=== PATIENT | male | born 1990 | race Caucasian/White ===

== ENCOUNTER 2018-05-01 00:28 | Emergency (ER) | payer OTHER ==
--- NOTE | 2018-05-01 01:58 | RADIOLOGY REPORT (SQ) ---
EXAM DESCRIPTION: XR CHEST 1 VIEW COMPLETED DATE/TME: 05/01/2018 01:21 CLINICAL HISTORY: 27 years Male, cp, sob COMPARISON: None. NUMBER OF VIEWS/TECHNIQUE: 1/AP FINDINGS: Adequate lung volume, clear parenchyma, normal cardiac silhouette, and intact bony thorax. IMPRESSION: No acute cardiopulmonary findings.
--- NOTE | 2018-05-01 02:30 | ER Document Report ---
ED General - General Chief Complaint: Chest Pain Stated Complaint: SHORTNESS OF BREATH Time Seen by Provider: 05/01/18 01:21 Notes: Patient is a 27-year-old male without chronic medical problems who presents with an episode of stabbing left-sided chest pain with associated shortness of breath that started while having sexual intercourse and has now spontaneously resolved. Patient states that this has happened on 2 previous occasions one several months ago while traveling for an extended period of time by a motor vehicle and second occasion approximately 2 weeks ago while running. States that he had an extensive evaluation at [facility] after the second episode. CTA of the chest, troponin markers, all unremarkable. Patient states that he had not had a recurrence of symptoms until tonight. States that it was a brief episode of stabbing, severe pain that made it difficult to breathe. Pain was exclusively isolated to the left mid chest. Pain did resolve spontaneously. No obvious trigger for the pain. Denies any history of DVT or pulmonary embolus. No unilateral leg swelling. No history of malignancy. No use of estrogen. No recent extended period of travel. No known trauma to the chest wall. Patient does note that he chronically has pain in his left neck and periscapular region. Past Medical History - General Information source: Patient - Social History Smoking Status: Never Smoker Chew tobacco use (# tins/day): Yes Frequency of alcohol use: None Drug Abuse: None Lives with: Spouse/Significant other Family History: Reviewed & Not Pertinent Patient has suicidal ideation: No Patient has homicidal ideation: No Renal/ Medical History: Denies: Hx Peritoneal Dialysis Review of Systems - Review of Systems Notes: Constitutional: Negative for fever. HENT: Negative for sore throat. Eyes: Negative for visual changes. Cardiovascular: Positive for chest pain. Respiratory: Positive for shortness of breath. Gastrointestinal: Negative for abdominal pain, vomiting or diarrhea. Genitourinary: Negative for dysuria. Musculoskeletal: Negative for back pain. Skin: Negative for rash. Neurological: Negative for headaches, weakness or numbness. 10 point ROS negative except as marked above and in HPI. Physical Exam - Vital signs Vitals: Temp Pulse Resp BP Pulse Ox 98.6 F 91 17 126/75 H 97 05/01/18 00:49 05/01/18 00:49 05/01/18 00:49 05/01/18 00:49 05/01/18 00:49 Interpretation: Normal Notes: PHYSICAL EXAMINATION: GENERAL: Well-appearing, well-nourished and in no acute distress. HEAD: Atraumatic, normocephalic. EYES: Pupils equal round and reactive to light, extraocular movements intact, sclera anicteric, conjunctiva are normal. ENT: nares patent, oropharynx clear without exudates. Moist mucous membranes. NECK: Normal range of motion, supple without lymphadenopathy LUNGS: Breath sounds clear to auscultation bilaterally and equal. No wheezes rales or rhonchi. HEART: Regular rate and rhythm without murmurs ABDOMEN: Soft, nontender, normoactive bowel sounds. No guarding, no rebound. No masses appreciated. EXTREMITIES: Normal range of motion, no pitting or edema. No cyanosis. NEUROLOGICAL: No focal neurological deficits. Moves all extremities spontaneously and on command. PSYCH: Normal mood, normal affect. SKIN: Warm, Dry, normal turgor, no rashes or lesions noted. Course - Re-evaluation Re-evalutation: 05/01/18 02:27 Presentation of chest pain in an otherwise well appearing patient. Low clinical suspicion for ACS given clinical history, exam, EKG without ST elevations or depressions, and negative initial troponin. HEART score less than or equal to 3. PE also seems unlikely given clinical history, absence of tachycardia or dyspnea. Patient is PERC criteria negative. CXR without evidence of pneumothorax or pneumonia. No widened mediastinum. Aortic dissection also seems unlikely g iven history, symmetric pulses, CXR, and vitals. Patient has been intermittently having stabbing pains over his left chest over the last several weeks. He did have a CT of the chest last week for similar symptoms and this was apparently negative. Of note, patient's stabbing chest pain has occurred usually during exertion, tonight was during sexual intercourse, several weeks ago was during a run. Considerations include muscular skeletal origin versus possible C6 VII nerve root impingement as patient does report some chronic left- sided neck pain and parascapular pain which could also cause stabbing pain over the chest wall. At this time will discharge with return precautions and follow- up recommendations. Verbal discharge instructions given a the bedside and opportunity for questions given. Medication warnings reviewed. Patient is in agreement with this plan and has verbalized understanding of return precautions and the need for primary care follow-up in the next 24-72 hours. - Vital Signs Vital signs: Temp Pulse Resp BP Pulse Ox 98.6 F 91 17 126/75 H 97 05/01/18 00:49 05/01/18 00:49 05/01/18 00:49 05/01/18 00:49 05/01/18 00:49 - Diagnostic Test Radiology reviewed: Image reviewed, Reports reviewed Radiology results interpreted by me: 05/01/18 02:28 Chest x-ray: No acute infiltrate pneumothorax - EKG Interpretation by Me Additional EKG results interpreted by me: 05/01/18 02:28 Sinus rhythm, rate 75. No ST elevations or depressions. QTC is 429. Discharge - Discharge Clinical Impression: Intermittent chest pain Condition: Good Disposition: HOME, SELF-CARE Additional Instructions: You were seen today for chest pain. The exact cause of your pain is unclear. Based on your cardiac enzyme testing, chest x-ray, and EKG it does not appear that it is from an immediately life-threatening cause at this time. As we discussed, a cervical nerve root impingement or inflammation of your chest wall could alternatively cause her symptoms. Although your testing here is normal is critical that you follow-up with your primary care physician for continued evalu ation of this chest pain and possible stress testing. I recommended you see your physician within the next 24-48 hours to be evaluated for consideration of a stress test. Please return to emergency department immediately if you have worsening of your chest pain, shortness of breath, vomiting, become unable to exert yourself due to pain or difficulty breathing, you pass out, or have any pain that radiates into your arms, jaw, or back. Please also return if you have any additional symptoms that are concerning to you. Please take ibuprofen 600 mg every 6 hours for the next 1 week to see if this helps improve your symptoms.
[2018-05-01 04:25] VITALS: BP 130/75
--- NOTE | 2018-05-01 23:46 | EKG REPORT ---
SEVERITY:- NORMAL ECG - SINUS RHYTHM : Confirmed by: Lloyd Mason 01-May-2018 23:45:38
== END 2018-05-01 03:15 | disposition home or self-care (01) ==
LOC: ER 00:28
DX: R07.9 Chest pain, unspecified (principal); R06.02 Shortness of breath; M54.2 Cervicalgia; G89.29 Other chronic pain
CPT/HCPCS: 36415; 71045; 84484; 93005; 93010; 99284